=== PATIENT | female | born 1945 | race Caucasian/White ===

== ENCOUNTER 2021-12-11 08:32 | Emergency (ER) | payer MEDICARE ==
[~2021-12-11] VITALS: Ht 167.6 cm; Wt 59.1 kg
[2021-12-11 08:43] VITALS: BP 134/80
[2021-12-11] MEDS ORDERED: AMOX-580 PO (09:33)
[2021-12-11] MEDS ORDERED: TETanus/Pertussis (Acell)/Diphther VAC/PF (Tdap-Adult) 0.5ml syringe IMVAC ONE (09:35)
[2021-12-11] MEDS ORDERED: METR-159 PO (09:55)
[2021-12-11] MEDS ORDERED: DOXY100C43 PO (09:55)
== END 2021-12-11 10:15 | disposition home or self-care (01) ==
LOC: ER 08:33
DX: U07.1 COVID-19 (principal); S61.552D Open bite of left wrist, subsequent encounter; F17.200 Nicotine dependence, unspecified, uncomplicated; Z88.0 Allergy status to penicillin; Z88.1 Allergy status to other antibiotic agents; W55.01XD Bitten by cat, subsequent encounter
CPT/HCPCS: 90471; 90715; 99283

== ENCOUNTER 2022-09-23 15:49 | Emergency (ER) | payer MEDICARE ==
[~2022-09-23] VITALS: Ht 165.1 cm; Wt 56.8 kg
[2022-09-23 16:08] VITALS: BP 123/69
[2022-09-23] MEDS ORDERED: TETanus/Pertussis (Acell)/Diphther VAC/PF (Tdap-Adult) 0.5ml syringe IMVAC ONE (16:15)
[2022-09-23] MEDS ORDERED: bacitracin 15gm ointment TP ONE (16:15)
[2022-09-23] MEDS ORDERED: DOXYCYCLINE 100MG CAPSULE PO STA (16:15)
[2022-09-23] MEDS ORDERED: DOXY100C76 PO (18:29)
== END 2022-09-23 18:32 | disposition home or self-care (01) ==
LOC: ER 15:50
DX: S61.231A Puncture wound without foreign body of left index finger without damage to nail, initial encounter (principal); W55.01XA Bitten by cat, initial encounter; Y93.89 Activity, other specified; Y92.89 Other specified places as the place of occurrence of the external cause; Y99.8 Other external cause status; Z88.1 Allergy status to other antibiotic agents; Z79.899 Other long term (current) drug therapy
CPT/HCPCS: 73140; 90471; 90715; 99283

== ENCOUNTER 2022-12-10 14:59 | Emergency (ER) | payer MEDICARE ==
[~2022-12-10] VITALS: Ht 167.6 cm; Wt 59.0 kg
[2022-12-10 15:29] VITALS: BP 110/86
[2022-12-10] MEDS ORDERED: DOXY-411 PO (16:35)
== END 2022-12-10 16:41 | disposition home or self-care (01) ==
LOC: ER 15:00
DX: S51.851A Open bite of right forearm, initial encounter (principal); Z79.2 Long term (current) use of antibiotics; Z79.899 Other long term (current) drug therapy; W55.01XA Bitten by cat, initial encounter; Y93.89 Activity, other specified; Y92.89 Other specified places as the place of occurrence of the external cause; Y99.8 Other external cause status
CPT/HCPCS: 99283

== ENCOUNTER 2023-01-15 10:20 | Emergency (ER) | payer MEDICARE ==
[~2023-01-15] VITALS: Ht 167.6 cm; Wt 55.0 kg
[2023-01-15 10:36] VITALS: BP 117/66; PULSE 52; RESP 17; O2SAT 98
[2023-01-15] MEDS ORDERED: CEPH500C81 PO (11:49)
[2023-01-15] MEDS ORDERED: SULF1TAB49 PO (11:49)
== END 2023-01-15 12:10 | disposition home or self-care (01) ==
LOC: ER 10:20
DX: L03.011 Cellulitis of right finger (principal); E11.9 Type 2 diabetes mellitus without complications; Z88.1 Allergy status to other antibiotic agents; Z88.8 Allergy status to other drugs, medicaments and biological substances
CPT/HCPCS: 99283